=== PATIENT | male | born 1950 | race Caucasian/White ===

== ENCOUNTER 2020-03-12 11:16 | Inpatient (IN) | payer MEDICAID ==
[~2020-03-12] VITALS: Ht 172.7 cm; Wt 67.6 kg
[2020-03-12 14:04] LABS: CHLORIDE 107 mEq/L (98-107)
[2020-03-12 14:08] LABS: ETHANOL BLOOD < 10 mg/dL
[2020-03-12 14:10] LABS: INR 1.1; PROTHROMBIN TIME 11.7 sec (9.6-11.0)
[2020-03-12 14:11] LABS: BASOPHILS % 0.4 % (0.0-2.0); EOSINOPHILS % 1.1 % (0.0-5.0); HEMATOCRIT. 50.8 % (42.0-52.0); HEMOGLOBIN. 16.7 g/dL (14.0-18.0); LDL CHOLESTEROL 154 mg/dL (5-100); LYMPHOCYTES % 13.1 % (20.0-50.0); MEAN CORPUSCULAR HEMOGLOBIN 27.7 pg (28.0-32.0); MEAN CORPUSCULAR VOLUME 84.2 fL (80.0-94.0); NEUTROPHILS % 74.4 % (40.0-76.0); PLATELET 251 x1000/uL (130-400); RED BLOOD CELL COUNT 6.03 mill/uL (4.7-6.1); RED CELL DISTRIBUTION WIDTH 16.1 % (11.6-14.6)
[2020-03-12] MEDS ORDERED: DOCUSATE SODIUM 100MG CAPSULE PO PRN (19:30)
[2020-03-12] MEDS ORDERED: IPRATROPIUM/ALBUTEROL 0.5-3(2.5)MG/3ML NEB HHN PRN (19:30)
[2020-03-12] MEDS ORDERED: MAGNESIUM/ALUMINUM HYDROXIDE/SIMETHICONE 30ML UDC PO PRN (19:30)
[2020-03-12] MEDS ORDERED: HYDROCODONE/ACETAMINOPHEN 5/325MG TABLET PO PRN (19:30)
[2020-03-12] MEDS ORDERED: CLONIDINE 0.1MG TABLET PO PRN (19:30)
[2020-03-12] MEDS ORDERED: ACETAMINOPHEN 325MG TABLET PO PRN (19:30)
[2020-03-12] MEDS ORDERED: DEXTROSE 50% WATER 50ML SYRINGE IV PRN ×2 (20:00)
[2020-03-12] MEDS: CLOPIDOGREL 75MG TABLET PO SCH (20:30)
[2020-03-12 20:53] LABS: T4 FREE 1.07 ng/dL (0.76-1.46)
[2020-03-12] MEDS: ENOXAPARIN 40MG/0.4ML SYR SUBCUT SCH (21:00)
[2020-03-12 21:04] LABS: FOLIC ACID (FOLATE) SERUM >20 ng/mL ng/mL (>5.38)
[2020-03-12 21:15] LABS: VITAMIN B12 SERUM 1699 pg/mL (211-911)
[2020-03-12 23:07] LABS: CLARITY URINE CLEAR (CLEAR); COLOR URINE DK YELLOW (YELLOW); KETONES URINE 2+ (NEGATIVE); LEUKOCYTE ESTERASE URINE NEGATIVE (NEGATIVE); NITRITE URINE NEGATIVE (NEGATIVE); OCCULT BLOOD URINE NEGATIVE (NEGATIVE); PH URINE 5.5 (4.5-8.0); PROTEIN URINE 3+ (NEGATIVE); SPECIFIC GRAVITY URINE 1.022 (1.005-1.030)
[2020-03-12 23:15] LABS: *AMPHETAMINES SCREEN URINE NEGATIVE (NEGATIVE); *BARBITURATES SCREEN URINE NEGATIVE (NEGATIVE); *BENZODIAZEPINES SCREEN URINE NEGATIVE (NEGATIVE); *COCAINE SCREEN URINE NEGATIVE (NEGATIVE)
[2020-03-12 23:16] LABS: CANNABINOID URINE SCREEN NEGATIVE (NEGATIVE); METHADONE URINE SCREEN NEGATIVE (NEGATIVE); OPIATES URINE SCREEN NEGATIVE (NEGATIVE); PHENCYCLIDINE URINE SCREEN NEGATIVE (NEGATIVE)
[2020-03-13] MEDS: BLOOD SUGAR DIAGNOSTIC STRIP TEST SCH ×4 (00:14→17:44)
[2020-03-13 04:45] LABS: EOSINOPHILS % 2.7 % (0.0-5.0); HEMATOCRIT. 46.5 % (42.0-52.0); HEMOGLOBIN. 15.7 g/dL (14.0-18.0); LYMPHOCYTES % 18.3 % (20.0-50.0); MEAN CORPUSCULAR HEMOGLOBIN 28.3 pg (28.0-32.0); MEAN CORPUSCULAR VOLUME 83.9 fL (80.0-94.0); MEAN PLATELET VOLUME 10.2 fl (7.4-10.4); MONOCYTES % 13.2 % (2.0-8.0); NEUTROPHILS % 64.8 % (40.0-76.0); PLATELET 244 x1000/uL (130-400); RED BLOOD CELL COUNT 5.54 mill/uL (4.7-6.1)
[2020-03-13 04:53] LABS: CHLORIDE 105 mEq/L (98-107)
[2020-03-13 04:58] LABS: PHOSPHORUS 3.8 mg/dL (2.5-4.9)
[2020-03-13 05:00] LABS: LDL CHOLESTEROL 149 mg/dL (5-100)
[2020-03-13 05:01] LABS: HDL CHOLESTEROL 43 mg/dL (40-59)
[2020-03-13] MEDS: INSULIN LISPRO 100 UNITS/ML SUBCUT SCH ×4 (08:04→17:44)
[2020-03-13] MEDS: PANTOPRAZOLE SODIUM 40 MG/VIAL IV SCH (09:45)
[2020-03-13] MEDS: CLOPIDOGREL 75MG TABLET PO SCH (09:45)
[2020-03-13 12:30] VITALS: BP 171/92
[2020-03-13] MEDS: CLONIDINE 0.1MG TABLET PO PRN (13:01)
[2020-03-13 16:00] VITALS: BP 135/84
[2020-03-13] MEDS ORDERED: LORAZEPAM 2MG/ML CPJ IV NR (18:15)
[2020-03-13 20:00] VITALS: BP 149/82
[2020-03-13] MEDS: ATORVASTATIN CALCIUM 20MG TABLET PO SCH (21:07)
[2020-03-13] MEDS: ENOXAPARIN 40MG/0.4ML SYR SUBCUT SCH (21:09)
[2020-03-14] VITALS: BP 161/91
[2020-03-14] MEDS: BLOOD SUGAR DIAGNOSTIC STRIP TEST SCH ×5 (00:54→21:14)
[2020-03-14 04:00] VITALS: BP 151/87
[2020-03-14] MEDS: INSULIN LISPRO 100 UNITS/ML SUBCUT SCH ×5 (06:00→21:00)
[2020-03-14 06:14] LABS: CHLORIDE 107 mEq/L (98-107)
[2020-03-14 06:17] LABS: BASOPHILS % 0.7 % (0.0-2.0); EOSINOPHILS % 5.5 % (0.0-5.0); HEMATOCRIT. 45.5 % (42.0-52.0); HEMOGLOBIN. 15.5 g/dL (14.0-18.0); LYMPHOCYTES % 16.9 % (20.0-50.0); MEAN CORPUSCULAR HEMOGLOBIN 28.4 pg (28.0-32.0); MEAN CORPUSCULAR VOLUME 83.3 fL (80.0-94.0); MEAN PLATELET VOLUME 10.4 fl (7.4-10.4); MONOCYTES % 13.8 % (2.0-8.0); NEUTROPHILS % 63.1 % (40.0-76.0); PLATELET 236 x1000/uL (130-400); RED BLOOD CELL COUNT 5.47 mill/uL (4.7-6.1); RED CELL DISTRIBUTION WIDTH 15.7 % (11.6-14.6)
[2020-03-14 08:00] VITALS: BP 128/85
[2020-03-14] MEDS: CLOPIDOGREL 75MG TABLET PO SCH (09:12)
[2020-03-14] MEDS ORDERED: LORAZEPAM 2MG/ML CPJ IV NR (10:00)
[2020-03-14] MEDS ORDERED: POTASSIUM CHLORIDE 20MEQ TABLET SR PO NR (10:00)
[2020-03-14 12:00] VITALS: BP 179/86
[2020-03-14] MEDS: CLONIDINE 0.1MG TABLET PO PRN (12:06)
[2020-03-14] MEDS: PANTOPRAZOLE SODIUM 40 MG/VIAL IV SCH (12:11)
[2020-03-14 16:00] VITALS: BP 106/82
[2020-03-14 19:00] LABS: BG BASE EXCESS -0.9 mmol/L (-2.0-2.0); BG CARBOXYHEMOGLOBIN 0.9 % (0.5-1.5); BG DEOXYHEMOGLOBIN 4.7 % (0.0-5.0); BG FRACTION INSPIRED OXYGEN 21; BG HCO3 ACT 23.2 mmol/L (22.0-26.0); BG METHEMOGLOBIN 0.5 % (0.0-1.5); BG OXYGEN SATURATION 95.2 % (92.0-98.5); BG OXYHEMOGLOBIN 93.9 % (94.0-97.0); BG PCO2 37.3 mmHg (35.0-45.0); BG PH 7.412 (7.350-7.450); BG PO2 74.4 mmHg (75.0-100.0); BG SAMPLE SITE RIGHT RADIAL; BG TOTAL HEMOGLOBIN 16.3 g/dL (12.0-18.0); BG VENT MODE ROOM AIR
[2020-03-14 20:00] VITALS: BP 145/86
[2020-03-14] MEDS: ATORVASTATIN CALCIUM 20MG TABLET PO SCH (20:46)
[2020-03-14] MEDS: ENOXAPARIN 40MG/0.4ML SYR SUBCUT SCH (20:48)
[2020-03-15] VITALS: BP 148/83
[2020-03-15 04:00] VITALS: BP 145/90
[2020-03-15 06:21] LABS: CHLORIDE 107 mEq/L (98-107)
[2020-03-15 06:33] LABS: BASOPHILS % 0.7 % (0.0-2.0); EOSINOPHILS % 3.8 % (0.0-5.0); HEMATOCRIT. 45.6 % (42.0-52.0); HEMOGLOBIN. 15.3 g/dL (14.0-18.0); LYMPHOCYTES % 16.6 % (20.0-50.0); MEAN CORPUSCULAR HEMOGLOBIN 28.3 pg (28.0-32.0); MEAN CORPUSCULAR VOLUME 84.1 fL (80.0-94.0); MEAN PLATELET VOLUME 10.5 fl (7.4-10.4); MONOCYTES % 13.4 % (2.0-8.0); NEUTROPHILS % 65.5 % (40.0-76.0); PLATELET 245 x1000/uL (130-400); RED BLOOD CELL COUNT 5.42 mill/uL (4.7-6.1); RED CELL DISTRIBUTION WIDTH 16.1 % (11.6-14.6)
[2020-03-15] MEDS: BLOOD SUGAR DIAGNOSTIC STRIP TEST SCH ×4 (06:45→21:00)
[2020-03-15] MEDS: INSULIN LISPRO 100 UNITS/ML SUBCUT SCH ×4 (07:15→21:00)
[2020-03-15 08:00] VITALS: BP 159/79
[2020-03-15] MEDS ORDERED: POTASSIUM CHLORIDE 20MEQ TABLET SR PO NR (09:15)
[2020-03-15] MEDS: LORAZEPAM 2MG/ML CPJ IV PRN (09:18)
[2020-03-15] MEDS: CLOPIDOGREL 75MG TABLET PO SCH (09:18)
[2020-03-15] MEDS: PANTOPRAZOLE SODIUM 40 MG/VIAL IV SCH (09:18)
[2020-03-15] MEDS: MEMANTINE HCL 5MG TABLET PO SCH ×2 (09:19→22:39)
[2020-03-15] MEDS: GALANTAMINE HBR 8MG ER CAPSULE 24HR PO SCH (13:31)
[2020-03-15 16:00] VITALS: BP 143/78
[2020-03-15 20:00] VITALS: BP 170/102
[2020-03-15] MEDS: ENOXAPARIN 40MG/0.4ML SYR SUBCUT SCH (22:39)
[2020-03-15] MEDS: ATORVASTATIN CALCIUM 20MG TABLET PO SCH (22:41)
[2020-03-15] MEDS: CLONIDINE 0.1MG TABLET PO PRN (22:48)
[2020-03-15 22:50] VITALS: BP 180/90
[2020-03-16] MEDS: LORAZEPAM 2MG/ML CPJ IV PRN ×2 (00:15→18:03)
[2020-03-16 00:25] VITALS: BP 147/108
[2020-03-16] MEDS ORDERED: IOHEXOL-350 100 ML BOTTLE ONE ×2 (00:34→11:38)
[2020-03-16 04:00] VITALS: BP 144/76
[2020-03-16] MEDS: BLOOD SUGAR DIAGNOSTIC STRIP TEST SCH ×4 (05:21→20:54)
[2020-03-16] MEDS: INSULIN LISPRO 100 UNITS/ML SUBCUT SCH ×4 (05:32→20:54)
[2020-03-16] MEDS: MEMANTINE HCL 5MG TABLET PO SCH ×2 (08:46→20:53)
[2020-03-16] MEDS: GALANTAMINE HBR 8MG ER CAPSULE 24HR PO SCH (08:47)
[2020-03-16] MEDS: CLOPIDOGREL 75MG TABLET PO SCH (08:47)
[2020-03-16] MEDS: FAMOTIDINE 20MG TABLET PO SCH ×2 (08:47→20:53)
[2020-03-16 09:10] LABS: BG BASE EXCESS -1.7 mmol/L (-2.0-2.0); BG CARBOXYHEMOGLOBIN 0.9 % (0.5-1.5); BG DEOXYHEMOGLOBIN 1.6 % (0.0-5.0); BG FRACTION INSPIRED OXYGEN 21; BG HCO3 ACT 22.6 mmol/L (22.0-26.0); BG METHEMOGLOBIN 0.3 % (0.0-1.5); BG OXYGEN SATURATION 98.4 % (92.0-98.5); BG OXYHEMOGLOBIN 97.2 % (94.0-97.0); BG PCO2 37.3 mmHg (35.0-45.0); BG SAMPLE SITE RIGHT RADIAL; BG TOTAL HEMOGLOBIN 16.2 g/dL (12.0-18.0); BG VENT MODE ROOM AIR
[2020-03-16] MEDS ORDERED: THIAMINE HCL 100MG TABLET PO NR (09:15)
[2020-03-16] MEDS ORDERED: LOSARTAN POTASSIUM 50 MG TABLET PO NR (09:30)
[2020-03-16 12:00] VITALS: BP 156/81
[2020-03-16] MEDS: SODIUM CHL 0.45% + KCL 20MEQ/L 1,000 ML IV SCH ×2 (13:29→20:30)
[2020-03-16 16:00] VITALS: BP 124/87
[2020-03-16 20:00] VITALS: BP 141/83
[2020-03-16] MEDS: ATORVASTATIN CALCIUM 20MG TABLET PO SCH (20:53)
[2020-03-16] MEDS: ENOXAPARIN 40MG/0.4ML SYR SUBCUT SCH ×2 (20:54→20:56)
[2020-03-17] VITALS: BP 132/92
[2020-03-17 04:00] VITALS: BP 141/80
[2020-03-17] MEDS: SODIUM CHL 0.45% + KCL 20MEQ/L 1,000 ML IV SCH (05:31)
[2020-03-17] MEDS: BLOOD SUGAR DIAGNOSTIC STRIP TEST SCH ×4 (05:31→21:00)
[2020-03-17] MEDS: INSULIN LISPRO 100 UNITS/ML SUBCUT SCH (05:32)
[2020-03-17 06:26] LABS: BASOPHILS % 0.9 % (0.0-2.0); EOSINOPHILS % 4.4 % (0.0-5.0); HEMATOCRIT. 47.7 % (42.0-52.0); HEMOGLOBIN. 15.9 g/dL (14.0-18.0); LYMPHOCYTES % 22.6 % (20.0-50.0); MEAN PLATELET VOLUME 10.6 fl (7.4-10.4); MONOCYTES % 14.4 % (2.0-8.0); NEUTROPHILS % 57.7 % (40.0-76.0); PLATELET 298 x1000/uL (130-400); RED BLOOD CELL COUNT 5.67 mill/uL (4.7-6.1); RED CELL DISTRIBUTION WIDTH 16.2 % (11.6-14.6)
[2020-03-17 06:37] LABS: CHLORIDE 110 mEq/L (98-107)
[2020-03-17 06:47] LABS: LDL CHOLESTEROL 126 mg/dL (5-100)
[2020-03-17 06:49] LABS: HDL CHOLESTEROL 39 mg/dL (40-59)
[2020-03-17 08:00] VITALS: BP 159/91
[2020-03-17] MEDS: LOSARTAN POTASSIUM 50 MG TABLET PO SCH (08:05)
[2020-03-17] MEDS: THIAMINE HCL 100MG TABLET PO SCH (08:05)
[2020-03-17] MEDS: GALANTAMINE HBR 8MG ER CAPSULE 24HR PO SCH (08:05)
[2020-03-17] MEDS: CLOPIDOGREL 75MG TABLET PO SCH (08:05)
[2020-03-17] MEDS: MEMANTINE HCL 5MG TABLET PO SCH ×2 (08:05→20:09)
[2020-03-17] MEDS: FAMOTIDINE 20MG TABLET PO SCH ×2 (08:06→20:08)
[2020-03-17] MEDS: FOLIC ACID/VITAMIN B COMP W-C TABLET PO SCH (08:06)
[2020-03-17 08:52] LABS: BG CARBOXYHEMOGLOBIN 0.6 % (0.5-1.5); BG DEOXYHEMOGLOBIN 2.7 % (0.0-5.0); BG FRACTION INSPIRED OXYGEN 21; BG HCO3 ACT 20.9 mmol/L (22.0-26.0); BG METHEMOGLOBIN 0.3 % (0.0-1.5); BG OXYGEN SATURATION 97.3 % (92.0-98.5); BG OXYHEMOGLOBIN 96.4 % (94.0-97.0); BG PCO2 38.1 mmHg (35.0-45.0); BG PH 7.357 (7.350-7.450); BG PO2 94.8 mmHg (75.0-100.0); BG SAMPLE SITE RIGHT RADIAL; BG TOTAL HEMOGLOBIN 16.2 g/dL (12.0-18.0); BG VENT MODE ROOM AIR
[2020-03-17] MEDS: LORAZEPAM 2MG/ML CPJ IV PRN ×2 (12:31→20:09)
[2020-03-17 17:54] VITALS: BP 171/110
[2020-03-17] MEDS: CLONIDINE 0.1MG TABLET PO PRN (17:59)
[2020-03-17 20:00] VITALS: BP 166/69
[2020-03-17] MEDS: ATORVASTATIN CALCIUM 20MG TABLET PO SCH (20:09)
[2020-03-17] MEDS: ENOXAPARIN 40MG/0.4ML SYR SUBCUT SCH (20:10)
[2020-03-18] VITALS: BP 159/79
[2020-03-18] MEDS: BLOOD SUGAR DIAGNOSTIC STRIP TEST SCH ×4 (06:45→21:44)
[2020-03-18 08:00] VITALS: BP 170/96
[2020-03-18] MEDS: LOSARTAN POTASSIUM 50 MG TABLET PO SCH (08:37)
[2020-03-18] MEDS: FOLIC ACID/VITAMIN B COMP W-C TABLET PO SCH (08:37)
[2020-03-18] MEDS: THIAMINE HCL 100MG TABLET PO SCH (08:37)
[2020-03-18] MEDS: GALANTAMINE HBR 8MG ER CAPSULE 24HR PO SCH (08:37)
[2020-03-18] MEDS: CLOPIDOGREL 75MG TABLET PO SCH (08:37)
[2020-03-18] MEDS: MEMANTINE HCL 5MG TABLET PO SCH ×2 (08:37→21:32)
[2020-03-18] MEDS: FAMOTIDINE 20MG TABLET PO SCH ×2 (08:37→21:32)
[2020-03-18 09:16] VITALS: BP 170/96
[2020-03-18] MEDS: AMLODIPINE 10MG TABLET PO SCH (11:34)
[2020-03-18 16:00] VITALS: BP 175/98
[2020-03-18] MEDS: LORAZEPAM 2MG/ML CPJ IV PRN ×2 (16:03→21:48)
[2020-03-18] MEDS: CLONIDINE 0.1MG TABLET PO PRN (16:54)
[2020-03-18 20:00] VITALS: BP 129/92
[2020-03-18] MEDS: ATORVASTATIN CALCIUM 20MG TABLET PO SCH (21:32)
[2020-03-18] MEDS: ENOXAPARIN 40MG/0.4ML SYR SUBCUT SCH (21:34)
[2020-03-19] VITALS: BP 157/86
[2020-03-19] MEDS: BLOOD SUGAR DIAGNOSTIC STRIP TEST SCH ×4 (07:16→20:42)
[2020-03-19 08:00] VITALS: BP 180/87
[2020-03-19] MEDS: FOLIC ACID/VITAMIN B COMP W-C TABLET PO SCH (08:49)
[2020-03-19] MEDS: THIAMINE HCL 100MG TABLET PO SCH (08:49)
[2020-03-19] MEDS: CLOPIDOGREL 75MG TABLET PO SCH (08:49)
[2020-03-19] MEDS: AMLODIPINE 10MG TABLET PO SCH (08:49)
[2020-03-19] MEDS: GALANTAMINE HBR 8MG ER CAPSULE 24HR PO SCH (08:49)
[2020-03-19] MEDS: MEMANTINE HCL 5MG TABLET PO SCH ×2 (08:49→20:41)
[2020-03-19] MEDS: LOSARTAN POTASSIUM 50 MG TABLET PO SCH (08:49)
[2020-03-19] MEDS: FAMOTIDINE 20MG TABLET PO SCH ×2 (08:49→20:41)
[2020-03-19] MEDS ORDERED: LOSARTAN POTASSIUM 50 MG TABLET PO SCH (11:45)
[2020-03-19 12:00] VITALS: BP 150/87
[2020-03-19 16:00] VITALS: BP 130/84
[2020-03-19] MEDS: LORAZEPAM 2MG/ML CPJ IV PRN (17:48)
[2020-03-19 20:00] VITALS: BP 166/85
[2020-03-19] MEDS: ATORVASTATIN CALCIUM 20MG TABLET PO SCH (20:41)
[2020-03-19] MEDS: METOPROLOL TARTRATE 25MG TABLET PO SCH (20:42)
[2020-03-19] MEDS: ENOXAPARIN 40MG/0.4ML SYR SUBCUT SCH (20:42)
[2020-03-19] MEDS: TRAZODONE HCL 50MG TABLET PO SCH (20:42)
[2020-03-20] VITALS (8 sets, daily range): BP systolic 105–166; BP diastolic 62–95
[2020-03-20] MEDS: LORAZEPAM 2MG/ML CPJ IV PRN ×2 (01:39→13:00)
[2020-03-20] MEDS: BLOOD SUGAR DIAGNOSTIC STRIP TEST SCH ×3 (05:54→20:29)
[2020-03-20] MEDS: GALANTAMINE HBR 8MG ER CAPSULE 24HR PO SCH (09:08)
[2020-03-20] MEDS: MEMANTINE HCL 5MG TABLET PO SCH ×2 (09:08→20:13)
[2020-03-20] MEDS: THIAMINE HCL 100MG TABLET PO SCH (09:08)
[2020-03-20] MEDS: FAMOTIDINE 20MG TABLET PO SCH ×2 (09:08→20:12)
[2020-03-20] MEDS: FOLIC ACID/VITAMIN B COMP W-C TABLET PO SCH (09:08)
[2020-03-20] MEDS: AMLODIPINE 10MG TABLET PO SCH (09:08)
[2020-03-20] MEDS: CLOPIDOGREL 75MG TABLET PO SCH (09:08)
[2020-03-20] MEDS: LOSARTAN POTASSIUM 100 MG TABLET PO SCH (09:08)
[2020-03-20] MEDS: METOPROLOL TARTRATE 25MG TABLET PO SCH ×2 (09:08→20:28)
[2020-03-20] MEDS: TRAZODONE HCL 50MG TABLET PO SCH (20:13)
[2020-03-20] MEDS: ATORVASTATIN CALCIUM 20MG TABLET PO SCH (20:13)
[2020-03-20] MEDS: ENOXAPARIN 40MG/0.4ML SYR SUBCUT SCH (20:14)
[2020-03-21] VITALS: BP 151/85
[2020-03-21] MEDS: BLOOD SUGAR DIAGNOSTIC STRIP TEST SCH ×4 (06:45→21:00)
[2020-03-21 08:00] VITALS: BP 169/80
[2020-03-21 09:33] VITALS: BP 169/80
[2020-03-21] MEDS: FOLIC ACID/VITAMIN B COMP W-C TABLET PO SCH (09:36)
[2020-03-21] MEDS: MEMANTINE HCL 5MG TABLET PO SCH ×2 (09:37→21:27)
[2020-03-21] MEDS: LOSARTAN POTASSIUM 100 MG TABLET PO SCH (09:37)
[2020-03-21] MEDS: THIAMINE HCL 100MG TABLET PO SCH (09:37)
[2020-03-21] MEDS: AMLODIPINE 10MG TABLET PO SCH (09:37)
[2020-03-21] MEDS: METOPROLOL TARTRATE 25MG TABLET PO SCH ×2 (09:37→21:27)
[2020-03-21] MEDS: FAMOTIDINE 20MG TABLET PO SCH ×2 (09:37→21:27)
[2020-03-21] MEDS: CLOPIDOGREL 75MG TABLET PO SCH (09:37)
[2020-03-21] MEDS: GALANTAMINE HBR 8MG ER CAPSULE 24HR PO SCH (09:37)
[2020-03-21 12:18] VITALS: BP 153/84
[2020-03-21 16:13] VITALS: BP 142/77
[2020-03-21 20:00] VITALS: BP 158/93
[2020-03-21] MEDS: ATORVASTATIN CALCIUM 20MG TABLET PO SCH (21:27)
[2020-03-21] MEDS: ENOXAPARIN 40MG/0.4ML SYR SUBCUT SCH (21:27)
[2020-03-21] MEDS: TRAZODONE HCL 50MG TABLET PO SCH (21:27)
[2020-03-22] VITALS: BP 152/79
[2020-03-22] MEDS: LORAZEPAM 2MG/ML CPJ IV PRN ×2 (01:22→22:22)
[2020-03-22 04:00] VITALS: BP 124/65
[2020-03-22] MEDS: BLOOD SUGAR DIAGNOSTIC STRIP TEST SCH ×4 (06:48→20:57)
[2020-03-22 07:29] LABS: BASOPHILS % 0.6 % (0.0-2.0); EOSINOPHILS % 1.7 % (0.0-5.0); HEMATOCRIT. 45.3 % (42.0-52.0); LYMPHOCYTES % 14.5 % (20.0-50.0); MEAN CORPUSCULAR HEMOGLOBIN 27.8 pg (28.0-32.0); MEAN CORPUSCULAR VOLUME 83.8 fL (80.0-94.0); MEAN PLATELET VOLUME 10.5 fl (7.4-10.4); MONOCYTES % 10.6 % (2.0-8.0); NEUTROPHILS % 72.6 % (40.0-76.0); PLATELET 327 x1000/uL (130-400); RED BLOOD CELL COUNT 5.41 mill/uL (4.7-6.1)
[2020-03-22 08:00] VITALS: BP 159/80
[2020-03-22] MEDS ORDERED: POTASSIUM CHLORIDE 20MEQ TABLET SR PO NR (08:45)
[2020-03-22] MEDS: GALANTAMINE HBR 8MG ER CAPSULE 24HR PO SCH (09:36)
[2020-03-22] MEDS: MEMANTINE HCL 5MG TABLET PO SCH ×2 (09:37→20:56)
[2020-03-22] MEDS: CLOPIDOGREL 75MG TABLET PO SCH (09:37)
[2020-03-22] MEDS: AMLODIPINE 10MG TABLET PO SCH (09:37)
[2020-03-22] MEDS: FAMOTIDINE 20MG TABLET PO SCH ×2 (09:37→20:56)
[2020-03-22] MEDS: LOSARTAN POTASSIUM 100 MG TABLET PO SCH (09:37)
[2020-03-22] MEDS: METOPROLOL TARTRATE 25MG TABLET PO SCH ×2 (09:38→21:00)
[2020-03-22] MEDS: FOLIC ACID/VITAMIN B COMP W-C TABLET PO SCH (09:38)
[2020-03-22] MEDS: THIAMINE HCL 100MG TABLET PO SCH (09:39)
[2020-03-22 12:00] VITALS: BP 149/78
[2020-03-22 16:00] VITALS: BP 136/83
[2020-03-22 20:00] VITALS: BP 152/88
[2020-03-22] MEDS: TRAZODONE HCL 50MG TABLET PO SCH (20:56)
[2020-03-22] MEDS: ATORVASTATIN CALCIUM 20MG TABLET PO SCH (20:56)
[2020-03-22] MEDS: ENOXAPARIN 40MG/0.4ML SYR SUBCUT SCH (20:57)
[2020-03-23] VITALS: BP 171/87
[2020-03-23] MEDS: CLONIDINE 0.1MG TABLET PO PRN (00:50)
[2020-03-23 04:00] VITALS: BP 135/81
[2020-03-23] MEDS: BLOOD SUGAR DIAGNOSTIC STRIP TEST SCH (06:36)
[2020-03-23 06:45] LABS: HEMATOCRIT. 44.9 % (42.0-52.0); HEMOGLOBIN. 14.7 g/dL (14.0-18.0); MEAN CORPUSCULAR HEMOGLOBIN 27.3 pg (28.0-32.0); MEAN CORPUSCULAR VOLUME 83.1 fL (80.0-94.0); MEAN PLATELET VOLUME 10.5 fl (7.4-10.4); PLATELET 326 x1000/uL (130-400); RED CELL DISTRIBUTION WIDTH 16.4 % (11.6-14.6)
[2020-03-23 08:00] VITALS: BP 101/74
[2020-03-23] MEDS: AMLODIPINE 10MG TABLET PO SCH (08:15)
[2020-03-23] MEDS: LOSARTAN POTASSIUM 100 MG TABLET PO SCH (08:15)
[2020-03-23] MEDS: METOPROLOL TARTRATE 25MG TABLET PO SCH (08:15)
[2020-03-23] MEDS: GALANTAMINE HBR 8MG ER CAPSULE 24HR PO SCH (08:27)
[2020-03-23] MEDS: CLOPIDOGREL 75MG TABLET PO SCH (08:27)
[2020-03-23] MEDS: FAMOTIDINE 20MG TABLET PO SCH (08:27)
[2020-03-23] MEDS: FOLIC ACID/VITAMIN B COMP W-C TABLET PO SCH (08:27)
[2020-03-23] MEDS: THIAMINE HCL 100MG TABLET PO SCH (08:27)
[2020-03-23] MEDS: MEMANTINE HCL 5MG TABLET PO SCH (08:27)
[2020-03-23] MEDS ORDERED: AMLO10TA80 PO (09:26)
[2020-03-23] MEDS ORDERED: CLOP75TA15 PO (09:26)
[2020-03-23] MEDS ORDERED: FAMO20TA8 PO (09:26)
[2020-03-23] MEDS ORDERED: METO25TA6 PO (09:27)
[2020-03-23] MEDS ORDERED: NEPVIT PO (09:27)
[2020-03-23] MEDS ORDERED: TRAZ-251 PO (09:27)
[2020-03-23] MEDS ORDERED: MEMA5TAB7 PO (09:27)
[2020-03-23] MEDS ORDERED: THIA100T72 PO (09:27)
[2020-03-23] MEDS ORDERED: LOSA100T3 PO (09:27)
[2020-03-23] MEDS ORDERED: GALA8CAP PO (09:27)
[2020-03-23 09:52] VITALS: BP 101/74
[2020-03-24 10:37] LABS: PLATELET ESTIMATE NORMAL
[2020-04-05] MEDS ORDERED: ATOR20TA65 MT (09:13)
== END 2020-03-23 10:35 | disposition home or self-care (01) | DRG 45 ==
LOC: ER 11:16 → MICUSO 15:18 → EDBEDREQ 15:21 → EDBEDREQTM 15:21 → 5WST 03-13 12:40
PROVIDERS: ADMIT Internal Medicine; ATTEND Internal Medicine
DX: I63.9 Cerebral infarction, unspecified (principal); R74.0 Nonspecific elevation of levels of transaminase and lactic acid dehydrogenase [LDH]; G81.94 Hemiplegia, unspecified affecting left nondominant side; R80.9 Proteinuria, unspecified; G93.41 Metabolic encephalopathy; G90.8 Other disorders of autonomic nervous system; I11.9 Hypertensive heart disease without heart failure; E11.65 Type 2 diabetes mellitus with hyperglycemia; R47.01 Aphasia; R13.10 Dysphagia, unspecified; E78.5 Hyperlipidemia, unspecified; E87.6 Hypokalemia; J98.11 Atelectasis; N17.9 Acute kidney failure, unspecified; Z53.20 Procedure and treatment not carried out because of patient's decision for unspecified reasons; F17.200 Nicotine dependence, unspecified, uncomplicated
CPT/HCPCS: 36415; 36600; 70496; 70544; 70553; 71045; 80048; 80053; 80061; 80305; 80320; 81003; 82140; 82375; 82607; 82746; 82805; 82962; 83036; 83721; 83735; 83880; 84100; 84439; 84443; 84481; 84484; 85025; 85384; 92523; 92610; 93005; 93306; 93880; 93970; 97116; 97162; 97166; 97530; 97535; 99291; C9113; J1650; J2060; J3480; Q9967; G0480

== ENCOUNTER 2020-04-01 11:52 | Emergency (ER) | payer MEDICAID ==
[~2020-04-01] VITALS: Ht 180.3 cm; Wt 79.0 kg
[~2020-04-01 11:52] MED LIST: AMLO10TA80 PO; CLOP75TA15 PO; FAMO20TA8 PO; GALA8CAP PO; LOSA100T3 PO; MEMA5TAB7 PO; METO25TA6 PO; NEPVIT PO; THIA100T72 PO; TRAZ-251 PO
[2020-04-01 14:11] LABS: BASOPHILS % 1.1 % (0.0-2.0); EOSINOPHILS % 5.4 % (0.0-5.0); HEMATOCRIT. 46.8 % (42.0-52.0); HEMOGLOBIN. 15.1 g/dL (14.0-18.0); LYMPHOCYTES % 13.5 % (20.0-50.0); MEAN CORPUSCULAR HEMOGLOBIN 27.2 pg (28.0-32.0); MEAN CORPUSCULAR VOLUME 84.3 fL (80.0-94.0); MEAN PLATELET VOLUME 10.4 fl (7.4-10.4); MONOCYTES % 10.4 % (2.0-8.0); NEUTROPHILS % 69.6 % (40.0-76.0); PLATELET 401 x1000/uL (130-400); RED BLOOD CELL COUNT 5.55 mill/uL (4.7-6.1); RED CELL DISTRIBUTION WIDTH 16.1 % (11.6-14.6)
[2020-04-01 14:13] LABS: CHLORIDE 104 mEq/L (98-107)
[2020-04-01 15:15] VITALS: BP 106/70
[2020-04-01] MEDS ORDERED: ACETAMINOPHEN 325MG TABLET PO ONE (15:15)
[2020-04-05] MEDS ORDERED: ATOR20TA65 MT (09:13)
== END 2020-04-01 16:44 | disposition home or self-care (01) ==
LOC: ER 11:52
DX: S90.112A Contusion of left great toe without damage to nail, initial encounter (principal); E11.9 Type 2 diabetes mellitus without complications; I11.9 Hypertensive heart disease without heart failure; Z79.899 Other long term (current) drug therapy; Z86.73 Personal history of transient ischemic attack (TIA), and cerebral infarction without residual deficits; X58.XXXA Exposure to other specified factors, initial encounter; Y93.89 Activity, other specified; Y92.89 Other specified places as the place of occurrence of the external cause; Y99.8 Other external cause status
CPT/HCPCS: 36415; 73630; 80053; 85025; 99284